=== PATIENT | male | born 2000 | race Caucasian/White ===

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

== ENCOUNTER 2020-06-20 13:09 | Emergency (ER) | payer BC, SELFPAY ==
[2020-06-20 13:12] VITALS: BP 132/87; PULSE 81; RESP 17; TEMP 36.4; O2SAT 99; BMI 24.9
--- NOTE | 2020-06-20 13:51 | ED.DCSUM_ITS ---
History of Present Illness Chief Complaint: Male Pain/Injury Detail of Chief Complaint: Swelling and edema to penis Informant: Patient Onset: Days Context: Sudden Onset Timing: Continuous Quality: Edema Location: Foreskin Current Severity: Severe Maximum Severity: Severe Worsened by: Not retracting foreskin Relieved by: Nothing Associated Symptoms: Discomfort head of penis Narrative: Patient is 20-year-old male who is not circumcised. He states he urinated 6 days ago. He did not retract his foreskin. He has done nothing for the swelling. He thought the swelling would get better. He is not complaining of discomfort and noted discoloration dorsal side of the penis near the junction of the shaft and glans. Patient denies any urinary symptoms. He denies testicular symptoms. He denies prior history of phimosis or paraphimosis. Prior similar symptoms: No Recent Illness/Hospitalization: No - Past Medical History (1) No significant past medical history Status: Acute Past Medical History - Allergies and Home Meds Allergies/Adverse Reactions: Allergies Penicillins Allergy (Verified 06/20/20 13:11) Hives shellfish derived Adverse Reaction (Verified 06/20/20 13:11) Vomiting Primary Care Physician: [facility] Doctor,Out of [NON-STAFF] - Prior records reviewed: No Past Medical History: None Surgical History: no surgical history Lives: With Family Smoking Status: Never smoker Drugs: None Review of Systems General: Denies: Chills, Fever, Malaise, Sweats Eyes: Denies: Visual changes - bilaterally, Blurred Vision - bilaterally Genitourinary: Denies: Dysuria, Hematuria, Frequency, - - Swelling head of penis/foreskin Skin: Reports: Wounds. Denies: Rash, Abscess, Abrasions Hematologic: Denies: Easy bruising, Easy bleeding Allergy: Denies: Uticaria, Swelling of the mouth, Swelling of the tongue Physical Exam Vital Signs/Narrative: Vital Signs Temp Pulse Resp BP Pulse Ox 06/20/20 13:12 97.6 F L 81 17 132/87 H 99 Inital Vital Signs reviewed: Yes General: Well nourished, Well developed, No Acute Distress Head: Normocephalic, Atraumatic Eyes: Perrl, EOMI. Negative for: Pale conjunctiva, Scleral icterus Neck: Supple, Nontender Cardiovascular: Regular rate Respiratory: No distress Abdomen: Soft, Nontender, Nondistended, Normal bowel sounds : - - There is discoloration dorsal surface of the penis near the junction of the shaft and glans. There is a wound noted. There is evidence of a paraphimosis with significant swelling noted. Testicles are descended bilaterally. There is no testicular or epididymal tenderness. There is no penile discharge or lesions noted. There is no inguinal lymphadenopathy. Skin: Normal color. Negative for: No rash, Cyanosis, Diaphoresis, Jaundice Neurological: Alert, Oriented x3, Cranial nerves II-XII grossly intact, Normal Strength, Normal Sensation Psychological: Normal affect Diagnostic/Tx/Re-eval - Medical Decision Making She has evidence of a paraphimosis. Plan is to reduce the paraphimosis. 2% lidocaine jelly was applied to the shaft and glans of the penis. Pressure was applied. The paraphimosis was reduced successfully without difficulty by me. There is no evidence of ischemia to the shaft or glans. Plan is outpatient follow-up with urology. ED Disposition - Plan for ED Patient: Disposition: Home or Assisted Living Diagnosis: Paraphimosis Instructions: ED Paraphimosis Referrals: [facility] Doctor,Out of [NON-STAFF] - Héctor Gomez MD [STAFF PHYSICIAN] - 3-5 Days
[2020-06-20] MEDS: Lidocaine 2% Jelly 1 APPLIC Tube 10 APPLIC TOPICAL (14:04)
== END 2020-06-20 14:06 | disposition home or self-care (01) ==
PROVIDERS: Emergency Provider Emergency Medicine
DX: N47.2 Paraphimosis (principal)
CPT/HCPCS: 99282

== ENCOUNTER 2020-11-23 09:16 | Emergency (ER) | payer BC, SELFPAY ==
[2020-11-23 09:18] VITALS: BP 101/53; PULSE 105; RESP 14; TEMP 36.2; O2SAT 97; BMI 27.3
--- NOTE | 2020-11-23 09:40 | ED.VISSUMM ---
- ER Visit Summary Date of Service: 11/23/20 Chief Complaint: Penile swelling History of Present Illness: The patient is a 20 M who presents with swelling of his penis that began last night. Patient states he had sexual intercourse last night. Patient states that he was unable to reduce his foreskin last night. Patient states the swelling became worse today. Patient states he had a similar episode in the past and was referred to urology. Patient states that the urologist told him that if it happens again he should look into an elective circumcision. Patient does admit to some pain in his testicles. Patient denies any abdominal pain. Patient denies any nausea or vomiting. Patient denies any dysuria or hematuria. Patient denies any urethral discharge. Physical Examination: Vital signs are stable. Patient is afebrile. Patient is in no acute distress. Abdomen is soft. Bowel sounds are normal. There is no tenderness. There is no rebound or guarding noted. Genitourinary exam shows a paraphimosis with swelling of the glans penis. There is some mild tenderness of the testicles bilaterally. There is vertical lie bilaterally. There is no evidence of any torsion. Cranial nerves II through XII are intact. There are no focal motor or sensory deficits. Test Results: Urinalysis was obtained and was within normal limits. GC and Chlamydia cultures were obtained and are pending. Emergency Department Course and Treatment: The paraphimosis was reduced. Patient was able to urinate afterwards without difficulty. Patient states it is feeling better on reevaluation. Patient was given Rocephin and Zithromax to cover for GC and chlamydia. Patient was referred to urology for follow-up care. Patient understood and was agreeable with the plan. All questions were answered. Disposition: Discharge home Impression: 1. Paraphimosis This note was generated with [employer] dictation software. It may contain incorrect words, spelling, and punctuation that were not noted in review of the chart prior to signing ED Disposition - Plan for ED Patient: Disposition: Home or Assisted Living Diagnosis: Paraphimosis Instructions: ED STI Male Treated, ED Phimosis Referrals: Care Physician,No Primary [NON-STAFF] - Héctor Gomez MD [STAFF PHYSICIAN] - 5-7 Days
[2020-11-23 09:57] LABS: Mucous, Urine 0 SEEN /hpf (<or=2+); Red Blood Cells-Urine 0 SEEN /hpf (0-5); White Blood Cells 0 SEEN /hpf (0-5)
[2020-11-23 09:58] LABS: Color, Urine Yellow (Yellow); Glucose, Dipstick Normal (Normal); Ketone-Dipstick Negative (Negative); Leukocyte Esterase-Dipstick Negative /ul (Negative); Nitrite-Dipstick Negative (Negative); Occult Blood-Urine Negative /ul (Negative); Protein-Dipstick Negative (Negative); Urine Bilirubin Dipstick Negative (Negative); Urine Clarity Clear (Clear); Urine Urobilinogen Normal (Normal)
[2020-11-23 10:07] LABS: Bacteria RARE /hpf (None Seen); Squamous Epithelial Cells - UA 0-5 SEEN /hpf (0-5)
[2020-11-23] MEDS: Azithromycin 250 MG Tablet 1000 MG PO (11:12)
[2020-11-23] MEDS: Ceftriaxone 500 MG Vial IM (11:19)
--- NOTE | 2020-11-23 11:33 | ED.RN ---
no adverse reaction to rocephin IM shot. just soreness
[2020-11-23 11:34] VITALS: RESP 16
[2020-11-23 14:23] LABS: Chlamydia Trachomatis by PCR Negative (Negative); Neisserai gonorrhoeae by PCR Negative (Negative); Probe Check PASS; Sample Adequacy Control PASS; Specimen Processing Control PASS
== END 2020-11-23 11:34 | disposition home or self-care (01) ==
PROVIDERS: Emergency Provider Emergency Medicine; PCP Pediatrics
DX: N47.2 Paraphimosis (principal)
CPT/HCPCS: 81001; 87491; 87591; 96372; 99283

== ENCOUNTER 2021-01-03 15:14 | Outpatient (RCR) | payer BC, SELFPAY | END 2021-02-26 23:59 | LOC: IMMUN 15:14 | PROVIDERS: Visit Provider Family Medicine | DX: Z23 Encounter for immunization (principal) | CPT/HCPCS: 0001A; 0002A; 91300 ==